=== PATIENT | female | born 1980 | race Caucasian/White ===

== ENCOUNTER 2024-08-16 23:01 | Emergency (ER) | payer BC, MEDICAID ==
[2024-08-16] MEDS: Lidocaine 2% with EPINEPHrine 1:200,000 20 ML SDV INJECT ONE (23:45)
== END 2024-08-17 00:22 | disposition home or self-care (01) ==
LOC: DL.ED 23:01
DX: S91.311A Laceration without foreign body, right foot, initial encounter (principal); S61.210A Laceration without foreign body of right index finger without damage to nail, initial encounter; W20.8XXA Other cause of strike by thrown, projected or falling object, initial encounter
CPT/HCPCS: 12004; 99282; J3490